=== PATIENT | male | born 1975 | race Caucasian/White ===

== ENCOUNTER 2021-04-30 17:52 | Emergency (ER) | payer MEDICARE, OTHER, MEDICAID, SELFPAY ==
--- NOTE | ~2021-04-30 | XR_ITS ---
XR chest 2V 04/30/2021 18:37 Indication: Cough. Right lower lobe crackles. Procedure: Two-view chest Comparison: No prior studies for comparison. Findings: Patchy bibasilar airspace disease, suspicious for pneumonia. No pleural effusion or pneumot horax. No acute osseous abnormality. Impression: 1: Patchy bibasilar airspace disease, compatible with pneumonia. Reviewed, dictated and finalized at location A. GER BALANCE Impression: 1: Patchy bibasilar airspace disease, compatible with pneumonia.
[2021-04-30 18:03] VITALS: BP 181/96; PULSE 99; RESP 16; TEMP 37.3; O2SAT 98
--- NOTE | 2021-04-30 18:13 | ED.URI ---
HPI - URI/Sore Throat General Chief Complaint: Upper Respiratory Infection Stated Complaint: Cough, wheezing. Time Seen by Provider: 04/30/21 18:24 Source: patient and RN notes reviewed Mode of arrival: ambulatory Limitations: no limitations History of Present Illness HPI Narrative: 45-year-old male with history of CHF, stage IV kidney disease, diabetes, neuropathy, vascular disease presents with concern for 1 week history of coughing and wheezing. Reports he is concerned for pneumonia. He denies nasal congestion, rhinorrhea, body aches, chills, sweats. Reports has been vaccinated for Covid. Denies any known exposure. Patient does peritoneal dialysis 10 hours a day. He has a history of gangrene and peritonitis this year. MD elicited complaint: cough and sore throat Related Data Home Medications Medication Instructions Recorded Confirmed alprazolam 04/30/21 aspirin [Adult Low Dose Aspirin] 81 mg PO DAILY 04/30/21 04/30/21 calcitriol 0.5 mcg PO 3XW 04/30/21 04/30/21 gabapentin 04/30/21 hydralazine 04/30/21 insulin NPH isoph U-100 human unit SUBCUT 04/30/21 [Novolin N Flexpen] insulin aspart U-100 [Novolog SUBCUT 04/30/21 Flexpen U-100 Insulin] isosorbide dinitrate mg 04/30/21 liraglutide [Victoza 3-Yakov] mg SUBCUT 04/30/21 lisinopril 04/30/21 metoprolol succinate PO 04/30/21 simvastatin mg 04/30/21 sucroferric oxyhydroxide [Velphoro] mg 04/30/21 tramadol mg 04/30/21 Allergies Allergy/AdvReac Type Severity Reaction Status Date / Time amoxicillin Allergy Unknown Verified 04/30/21 18:21 atorvastatin [From Lipitor] Allergy Unknown Verified 04/30/21 18:21 Review of Systems Review of Systems: CONSTITUTIONAL: Denies malaise, chills, sweats, or fever. EYES: Denies visual changes, redness, or discharge. ENT: Denies rhinorrhea, congestion, sinus pain, otalgia and sore throat. CARDIOVASCULAR: Denies chest pain, palpitations, or edema. RESPIRATORY: Reports cough, wheezing. Denies dyspnea. GASTROINTESTINAL: Denies abdominal pain, nausea, vomiting, diarrhea SKIN: Denies rash or itching. MUSCULOSKELETAL: Denies myalgia. NEUROLOGIC: Denies headache. All systems reviewed & are unremarkable except as noted in HPI and below PMFSH Comments At time of signature, agree with nursing past medical, surgical, social and family history. There is no relevant family history pertinent to the presenting complaint Exam Narrative: GENERAL: Well-appearing, well-nourished, and in no acute distress. HEAD: Normocephalic EYES: PERRLA, conjunctivae clear ENT: Nares clear. Mucous membranes moist. NECK: Supple. No lymphadenopathy CHEST: Right lower lobe crackles otherwise clear to auscultation, breath sounds equal. No wheezing, rhonchi, stridor. No respiratory distress, speaks in full sentences. HEART: Regular rate and rhythm. No murmur heard. SKIN: Warm, dry, no rash. NEURO: Alert and oriented x3. PSYCH: Normal mood and affect Course Course Emergency Course: Patient is aware of diagnosis, understands and agrees to treatment plan. Anticipatory guidance given. Patient agrees to follow-up as directed and is aware of reasons to seek care at the emergency department. Portions of this record may have been created with voice recognition software Vital Signs Vital signs: Vital Signs Temperature 99.2 F 04/30/21 18:03 Pulse Rate 99 04/30/21 18:03 Respiratory Rate 16 04/30/21 18:03 Blood Pressure 181/96 H 04/30/21 18:03 Pulse Oximetry 98 04/30/21 18:03 Temperature 99.2 F 04/30/21 18:03 Pulse Rate 99 04/30/21 18:03 Respiratory Rate 16 04/30/21 18:03 Blood Pressure 181/96 H 04/30/21 18:03 Pulse Oximetry 98 04/30/21 18:03 Reviewed. MDM - URI/Sore Throat MDM Narrative Medical decision making narrative: Differential diagnosis considered: CHF, pulmonary congestion, [place] virus, strep pharyngitis, allergic rhinitis, upper respiratory tract infection, sinusitis, rhinosinusitis, nasopharyngitis. vir
== END 2021-04-30 18:55 | disposition home or self-care (01) ==
PROVIDERS: Emergency Provider Nurse Practitioner; PCP Family Medicine
DX: J18.9 Pneumonia, unspecified organism (principal); I50.9 Heart failure, unspecified; N18.4 Chronic kidney disease, stage 4 (severe); E11.22 Type 2 diabetes mellitus with diabetic chronic kidney disease; Z79.82 Long term (current) use of aspirin; Z79.4 Long term (current) use of insulin
CPT/HCPCS: 71046; 99213; G0463